=== PATIENT | male | born 1940 | race Caucasian/White ===

== ENCOUNTER → 2018-06-10 14:24 | Outpatient (CLI) | payer MEDICARE, SELFPAY ==
[2018-06-12 13:46] LABS: PSA Free % 10 % (calc) (> 25)
== END ==
PROVIDERS: Visit Provider Urology
DX: R97.20 Elevated prostate specific antigen [PSA] (principal)
CPT/HCPCS: 36415; 84153; 84154

== ENCOUNTER 2018-06-19 08:01 | Day surgery (SDC) | payer MEDICARE, SELFPAY ==
--- NOTE | 2018-06-18 16:57 | PM.PREOP ---
Pre-operative Note Interval Note Pre-op Check: Yes History & Physical Reviewed by Physician Changes: No
--- NOTE | 2018-06-19 08:18 | PM.OP.1 ---
Operative Date/Time/Diagnoses Date of procedure: 06/19/18 Time of procedure: 08:18 Procedure & Clinicians Procedure: Date of service: June 19, 2018 Preoperative diagnoses: 1. Right nuclear sclerotic Cataract Postoperative diagnoses: 1. Cataract removal with phacoemulsification with use of posterior chamber intraocular lens implant. Procedure: Phacoemulsification with posterior chamber intraocular lens implant Surgeon: Phyllis Parmar MD Complications: none Specimen: None Implant: ZCBOO+20.5 Blood loss: None Anesthesia: Topical with monitored standby Anesthesiologist: Yusuf Lea M.D. Description of procedure: Patient is a male year old with decreased vision due to cataract which is affecting activities of daily living. He wants surgery to improve vision. He has taken to the operating room and given IV sedation. Several drops of tectracaine were placed and he was prepped using Betadine solution, and draped in the usual sterile fashion. Topical lidocaine jelly 2 percent was then placed.A temporal approach was made, a 1 mm side-port incision was made at the 7:30 position. Phenylephrine 1.5% mixed with 1% xylocaine 0.2 cc was placed into the anterior chamber. Viscoat followed by Gabriele was then placed. A 2.6 mm clear incision with a 2.6 mm blade was placed at the 170 degree meridian. A 360 degree capsulorrhexis style capsulotomy was then performed with a cystitome needle on a Healon. Hydrodelineation and hydrodissection were performed. The phacoemulsification unit is introduced, and sculpting notice used to groove the central lens. It is then removed in chopping mode. Epi nucleus is removed with epinuclear mode and irrigation aspiration was used to remove the peripheral cortex. The posterior capsule is polished. The intraocular lens is selected, inspected, power confirmed, and placed in the posterior chamber. The pupil was constricted. The wound was stromally hydrated and tested for leaks, there was none and was left sutureless. Vigamox 0.1 cc was placed into the anterior chamber. Kenalog 0.2 cc was placed in the superior subconjunctival space. A drop of antibiotic and was placed and the eye was patched and shielded. The patient was stable and returned to the recovery room in excellent condition. Dictated by: Phyllis Parmar MD Copy to: [facility] Same procedure as scheduled: Yes
[2018-06-19] MEDS: PROPARACAINE 0.5% OPHTH SOL 2 DROPS EYE-OP (08:19)
[2018-06-19 08:21] VITALS: BP 173/95; PULSE 77; RESP 18; TEMP 36.4; O2SAT 97
[2018-06-19] MEDS: CATARACT EYE COMPOUND (10 DROPS/SYRINGE) 3 DROPS EYE-OP ×3 (08:23→08:33)
[2018-06-19 08:24] VITALS: BMI 29.1
--- NOTE | 2018-06-19 09:00 | SUR.OPER ---
Supine on eye stretcher, head on extension cradle secured with tape. Arms tucked at sides with blanket. Pillow under knees.
[2018-06-19] MEDS: LIDOCAINE JELLY 2% 30 ML TOP (09:03)
[2018-06-19] MEDS: TETRACAINE 0.5% OPHTH DROPS 15 ML 2 DROPS EYE-RIGHT (09:03)
[2018-06-19] MEDS: PHENYLEPHRINE/LIDOCAINE VIAL (OR) 0.2 ML EYE-OP (09:04)
[2018-06-19] MEDS: TRIAMCINOLONE 50 MG/5 ML VIAL INJ (09:04)
[2018-06-19] MEDS: MOXIFLOXACIN OPHTH DROPS 3 ML BOTTLE 2 DROPS INJ (09:04)
[2018-06-19] MEDS: HYALURONATE SODIUM 10 MG/ML SYRINGE INJ (09:05)
[2018-06-19] MEDS: CHONDROIDTIN/SOD HYALURONATE 1.05 ML SYRINGE INTRAOCULA (09:05)
[2018-06-19] MEDS: CARBACHOL 1.5 ML VIAL INJ (09:06)
[2018-06-19] MEDS: OFLOXACIN 0.3% OPHTH 5 ML 2 DROPS EYE-RIGHT (09:06)
[2018-06-19] MEDS: BALANCED SALT IRRIG SOLN NO.2 500 ML, EPINEPHrine 1 MG IRR (09:07)
[2018-06-19 09:29] VITALS: BP 139/85; PULSE 65; RESP 16; TEMP 36.6; O2SAT 96
[2018-06-19 09:52] VITALS: BP 118/74; PULSE 63; RESP 17; TEMP 36.6; O2SAT 95
== END 2018-06-19 10:05 | disposition home or self-care (01) ==
LOC: OR 08:05
PROVIDERS: PCP Internal Medicine; Visit Provider Ophthalmology
DX: H25.11 Age-related nuclear cataract, right eye (principal); J44.9 Chronic obstructive pulmonary disease, unspecified
CPT/HCPCS: J0171; J2250; J3010; J3301

== ENCOUNTER 2018-06-26 08:08 | Day surgery (SDC) | payer MEDICARE, SELFPAY ==
--- NOTE | 2018-06-25 16:44 | PM.PREOP ---
Pre-operative Note Interval Note Pre-op Check: Yes History & Physical Reviewed by Physician Changes: No
--- NOTE | 2018-06-25 16:45 | PM.OP.1 ---
Operative Date/Time/Diagnoses Date of procedure: 06/26/18 Time of procedure: 09:45 Procedure & Clinicians Procedure: Preoperative diagnoses: 1. Right nuclear sclerotic and cortical cataract. Postoperative diagnoses: 1. Cataract removed by phacoemulsification with placement of posterior chamber intraocular lens. 2. Macular pucker. Procedure: Phacoemulsification with posterior chamber intraocular lens implant Surgeon: Phyllis Parmar MD Complications: None Specimen: None Implant:ZCBOO+21.5 Blood loss: None Anesthesia: Retrobulbar with monitored standby Description of procedure: Patient presents with a complaint of decreased vision due to cataract which is affecting activities of daily living. The patient wants surgery to improve vision. The patient was taken to the operating room and given IV sedation. A retrobulbar block insert consisting of 6 cc of 2% xylocaine without epinephrine mixed half and half with 0.5% Marcaine with 1 cc of hyaluronidase added is placed between the medial and lateral 1/3 of the inferior orbital rim. Lid akinesia is obtain with 1% xylocaine with epinephrine infiltrated along the lid margin. The eye is manually massaged for 30 sec, prepped using Betadine solution, and draped in the usual sterile fashion. Temporal approach was made, a 1 mm side-port incision was made 90? from the proposed clear corneal incision position. Phenylephrine 1.5% mixed with 1% xylocaine 0.2 cc was placed into the anterior chamber. Viscoat followed by Gabriele was then placed. A 2.6 mm clear incision with a 2.6 mm blade was placed. A 360 degree capsulorrhexis style capsulotomy was then performed with a cystitome needle on a Healon. Hydrodelineation and hydrodissection were performed. The phacoemulsification unit is introduced, and sculpting notice used to groove the central lens. It is then removed in chopping mode. Epi nucleus is removed with epinuclear mode and irrigation aspiration was used to remove the peripheral cortex. The posterior capsule is polished. The intraocular lens is selected, inspected, power confirmed, and placed in the posterior chamber. The pupil was constricted with Miostat. The wound was stromally hydrated and tested for leaks, there was none and it was left sutureless. Vigamox 0.1 cc was placed into the anterior chamber. Kenalog 0.2 cc was placed in the superior subconjunctival space. A drop of antibiotic and was placed and the eye was patched and shielded. The patient was stable and returned to the recovery room in excellent condition. Dictated by: Phyllis Parmar MD Copy to: [facility]
[2018-06-26] MEDS: PROPARACAINE 0.5% OPHTH SOL 2 DROPS EYE-OP (08:26)
[2018-06-26 08:31] VITALS: BP 176/95; PULSE 71; RESP 16; TEMP 36.4; O2SAT 98; BMI 28.8
[2018-06-26] MEDS: CATARACT EYE COMPOUND (10 DROPS/SYRINGE) 3 DROPS EYE-OP (08:36)
[2018-06-26] MEDS: PHENYLEPHRINE/LIDOCAINE VIAL (OR) 0.2 ML EYE-OP (10:22)
[2018-06-26] MEDS: HYALURONATE SODIUM 10 MG/ML SYRINGE INJ (10:23)
[2018-06-26] MEDS: MOXIFLOXACIN OPHTH DROPS 3 ML BOTTLE 2 DROPS INJ (10:23)
[2018-06-26] MEDS: CHONDROIDTIN/SOD HYALURONATE 1.05 ML SYRINGE INTRAOCULA (10:23)
[2018-06-26] MEDS: TRIAMCINOLONE 50 MG/5 ML VIAL INJ (10:23)
[2018-06-26] MEDS: BALANCED SALT IRRIG SOLN NO.2 15 ML IRRIG.SOLN IRR (10:23)
[2018-06-26] MEDS: OFLOXACIN 0.3% OPHTH 5 ML 2 DROPS EYE-LEFT (10:24)
[2018-06-26] MEDS: NEOMYCIN/POLY/DEX OPHTH OINT 1 APPLIC EYE-LEFT (10:24)
[2018-06-26] MEDS: CARBACHOL 1.5 ML VIAL INJ (10:24)
[2018-06-26] MEDS: LIDOCAINE 2% 4 ML, BUPIVACAINE 0.5% (PF) 4 ML, HYALURONIDASE 150 UNIT INJ (10:25)
[2018-06-26] MEDS: BALANCED SALT IRRIG SOLN NO.2 500 ML, EPINEPHrine 1 MG IRR (10:25)
[2018-06-26] MEDS: LIDOCAINE 1% W/EPI INJ 20 ML INJ (10:26)
[2018-06-26 10:51] VITALS: BP 142/87; PULSE 59; RESP 15; TEMP 36.2; O2SAT 96
[2018-06-26 11:05] VITALS: BP 131/83; PULSE 51; RESP 16; TEMP 36.2; O2SAT 96
== END 2018-06-26 11:14 | disposition home or self-care (01) ==
LOC: OR 08:10
PROVIDERS: Visit Provider Ophthalmology
DX: H25.12 Age-related nuclear cataract, left eye (principal); J44.9 Chronic obstructive pulmonary disease, unspecified
CPT/HCPCS: J0171; J2704; J3301; J3470

== ENCOUNTER 2018-12-28 14:46 | Emergency (ER) | payer MEDICARE, SELFPAY ==
[2018-12-28 14:50] VITALS: BP 158/95; PULSE 92; RESP 14; TEMP 36.6; O2SAT 100; BMI 27.7
--- NOTE | 2018-12-28 15:26 | ED.WOUNDLAC ---
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 Complains of a large abrasion to his left [place], wash it with antibacterial soap, apply Neosporin, and wrapped with gauze. Patient is worried about infection as a previous wound was severely infected and he does not want this to happen again. Denies any fevers, chills, chest pain, shortness of breath, abdominal pain, change in bowel or bladder, or excessive bleeding. Patient is able to ambulate on his leg. Related Data Home Medications Medication Instructions Recorded Confirmed metoprolol tartrate [Lopressor] 75 mg PO BID #0 01/19/11 06/19/18 Previous Rx's Medication Instructions Recorded cephalexin 500 mg PO BID 5 Days #10 cap 12/28/18 Allergies Allergy/AdvReac Type Severity Reaction Status Date / Time No Known Drug Allergies Allergy Verified 12/28/18 15:06 Review of Systems <MARGAUX Mejia - Last Filed: 12/28/18 21:39> Review of Systems REVIEW OF SYSTEMS: GENERAL: Denies fever or chills. HENT: No head trauma, hearing loss or sore throat. EYES: No loss of vision, double vision, eye pain, or irritation. CARDIOVASCULAR: No chest pain or syncope. RESPIRATORY: No shortness of breath or cough. GASTROINTESTINAL: No nausea, vomiting, diarrhea, or constipation. GENITOURINARY: No flank pain or dysuria. MUSCULOSKELETAL: Complains of abrasion to left leg. INTEGUMENTARY: Complains of lesion, see HPI. NEURO: No numbness, tingling, memory loss, or confusion. PSYCH: No behavior or mood changes. PFSH <MARGAUX Mejia - Last Filed: 12/28/18 21:39> Surgical History H/O hand surgery (Chronic) Social History household members: significant other Smoking Status: Unknown if ever smoked Social History household members: significant other Smoking Status: Unknown if ever smoked Exam <MARGAUX Mejia - Last Filed: 12/28/18 21:39> Initial Vital Signs Initial Vital Signs: Vital Signs Temperature 97.9 F 12/28/18 14:50 Pulse Rate 92 H 12/28/18 14:50 Respiratory Rate 14 12/28/18 14:50 Blood Pressure 158/95 H 12/28/18 14:50 Pulse Oximetry 100 12/28/18 14:50 PHYSICAL EXAMINATION: GENERAL: Well groomed, alert, and cooperative Answers questions promptly and appropriately. Vital signs noted. HENT: Normocephalic, atraumatic. EYES: Conjunctiva pink, sclera white, no periorbital swelling. CARDIOVASCULAR: S1 and S2 sounds normal. Regular rate and rhythm, no murmurs, clicks, or bruits. No pedal edema. RESPIRATORY: Normal respiratory rate, trachea midline, airway patent. No stridor, nasal flaring or accessory muscle use. Lungs are clear in all [place] without wheeze, rhonchi, or crackles. GASTROINTESTINAL: Bowel sounds normoactive. Abdomen is soft and non-tender. No organomegaly. MUSCULOSKELETAL: Normal gait and coordination. Equal tone and mass bilaterally. EXTREMITIES: CMS intact. Full range of motion to ankles, feet, knees, hips bilaterally. No tenderness to palpation of tibia bones. SKIN: Large abrasion on the top of his left chin about 30 cm in length and 3 cm and with. Bleeding is controlled, no exudate, no erythema. Tenderness to palpation around wound bed. Patient initially presented with wound wrapped in gauze. NEURO: Alert and Oriented X 3. Good coordination. No ataxia, or sensory deficits, or cognitive issues. PSYCH: Appropriate affect and mood. <Darby Mak DO - Last Filed: 12/29/18 21:42> Initial Vital Signs Initial Vital Signs: Vital Signs Temperature 97.9 F 12/28/18 14:50 Pulse Rate 92 H 12/28/18 14:50 Respiratory Rate 14 12/28/18 14:50 Blood Pressure 158/95 H 12/28/18 14:50 Pulse Oximetry 100 12/28/18 14:50 Course <[place] MARGAUX Davison - Last Filed: 12/28/18 21:39> Course Narrative: Patient's wound was wrapped with bacitracin and Telfa pads as well as Coban. Consultations Consultation #1: Patient staffed with Dr. Mak Vital Signs - 8 hr 12/28/18 14:50 Temperature 97.9 F Pulse Rate 92 H Respiratory Rate 14 Blood Pressure 158/95 H Pulse Oximetry 100 <Darby Mak DO - Last Filed: 12/29/18 21:42> Vital Signs - 8 hr 12/28/18 14:50 Temperature 97.9 F Pulse Rate 92 H Respiratory Rate 14 Blood Pressure 158/95 H Pulse Oximetry 100 MDM - Wound/Laceration <MARGAUX Mejia - Last Filed: 12/28/18 21:39> Medical Records Attestation: I reviewed the patient's medical records. Lab Data Attestation: I reviewed the patient's lab results. MDM Narrative Medical decision making narrative: Due to patient's history of severe infection in that leg, surgery that remove multiple veins not leg, the significance of the wound and the environmental exposure that occurred with the wound, I felt it was appropriate to treat the patient prophylactically for cellulitis. Patient was given instructions to use if the wound becomes red or swollen. Strict return precautions were given and follow-up instructions discussed. Discharge Plan Departure Patient Disposition: Home Clinical Impression: Abrasion Discharge Date/Time: 12/28/18 15:31 Interventions: ED Discharge Assessment Last Done: 12/28/18 15:30 Instructions: DI for Abrasion, DI for Wound Infection Activity Restrictions/Additional Instructions: Thank you for entrusting me with your care today. As discussed, and prescribed the antibiotics to take if the wound starts to get infected. Please follow up with your primary care provider in the next few days to monitor your wound. You may shower but do not take a bath, go swimming, soak in a hot tub. Place ointment on the wound and keep it covered until the scab forms. Please return to emergency department if you have fevers, chills, uncontrollable vomiting, increased redness and pain around the area, or syncope. Prescriptions: New cephalexin 500 mg capsule 500 mg PO BID 5 Days Qty: 10 RF: 0 No Action metoprolol tartrate [Lopressor] 50 MG tablet 75 mg PO BID Qty: 0 RF: 0 <Darby Mak DO - Last Filed: 12/29/18 21:42> Cosign ED Attending Cosmiguel angelature Attestation: I was immediately available in the department for consultation. Documentation has been reviewed. I agree with assessment and plan.
--- NOTE | 2018-12-28 15:27 | PC.NURSE ---
CSM intact. Pain well controlled.
== END 2018-12-28 15:31 | disposition home or self-care (01) ==
LOC: ED 15:34
PROVIDERS: Emergency Provider Nurse Practitioner
DX: S80.812A Abrasion, left lower leg, initial encounter (principal); W01.0XXA Fall on same level from slipping, tripping and stumbling without subsequent striking against object, initial encounter
CPT/HCPCS: 99283

== ENCOUNTER → 2019-04-07 13:40 | Outpatient (CLI) | payer MEDICARE, SELFPAY | PROVIDERS: Visit Provider Orthopaedic Surgery Foot and Ankle Surgery | DX: M85.80 Other specified disorders of bone density and structure, unspecified site (principal); M79.672 Pain in left foot | CPT/HCPCS: 77080 ==

== ENCOUNTER → 2021-01-30 15:08 | Outpatient (CLI) | payer MEDICARE, SELFPAY | PROVIDERS: Referring Provider Nurse Practitioner; Visit Provider Nurse Practitioner | DX: I48.91 Unspecified atrial fibrillation (principal) | CPT/HCPCS: 93005 ==